=== PATIENT | female | born 1960 | race Caucasian/White ===

== ENCOUNTER 2017-02-09 06:31 | Emergency (ER) | payer OTHER ==
[~2017-02-09] VITALS: Ht 157.5 cm; Wt 89.0 kg
[~2017-02-09 06:31] MED LIST: AMOX1TAB10 PO; CALC-67 PO; DOCU-144 PO; GLIM4TAB PO; HYDR-3498 PO; OMEG100011 PO; PIOG15TA21 PO; SIMV20TA PO
[2017-02-09 06:32] VITALS: Ht 157.5 cm; Wt 89.0 kg
[2017-02-09] MEDS ORDERED: traMADol 50 MG TAB PO ONE (07:30)
[2017-02-09] MEDS ORDERED: IBUPROFEN 600 MG TAB PO ONE (07:30)
[2017-02-09] MEDS ORDERED: TRAM50TA2 PO (07:44)
[2017-02-09] MEDS ORDERED: IBUP-1542 PO (07:44)
[2017-02-09] MEDS ORDERED: DOXY100T20 PO (07:44)
--- NOTE | 2017-02-09 07:52 | ERD ---
ER Documentation Chief Complaint Date/Time DATE: 02/09/17 TIME: 07:49 Chief Complaint right foot pain/swelling since yesterday, no trauma HPI This 56-year-old female presents with pain in her right foot since yesterday. She has a history of trauma. The pain is primarily on the plantar aspect of her right foot in the area of the metatarsal phalangeal joint. Patient denies any fevers, restricted range of motion weakness. ROS All systems reviewed and are negative except as per history of present illness. Medications Home Meds Active Scripts Tramadol HCl (Tramadol HCl) 50 Mg Tablet, 50 MG PO Q4 Y for PAIN, #15 TAB Prov:SOFIA VALENTE MD 02/09/17 Ibuprofen* (Motrin*) 600 Mg Tab, 600 MG PO Q6, #15 TAB Prov:SOFIA VALENTE MD 02/09/17 Doxycycline Hyclate* (Doxycycline Hyclate*) 100 Mg Tablet.dr, 100 MG PO BID for 10 Days, TAB Prov:SOFIA VALENTE MD 02/09/17 Amox Tr/Potassium Clavulanate (Amox Tr-K Clv 875-125 Mg Tab) 1 Tab Tablet, 1 TAB PO BID for 7 Days, TAB Prov:JOANNA DUQUE [employer] 09/21/15 Docusate Sodium* (Colace*) 100 Mg Cap, 100 MG PO TID, #30 CAP Prov:JOANNA DUQUE [employer] 09/21/15 Hydrocodone Bit/Acetaminophen (Anexsia 5-325 Mg Tablet) 1 Tab Tab, 2 TAB PO Q6H Y for SEVERE PAIN LEVEL 7-10, #40 TAB Prov:JOANNA DUQUE [employer] 09/21/15 Reported Medications [place]-3 Fatty Acids/Fish Oil* (Fish Oil *) 1,000 Mg Capsule, 1000 MG PO BID, CAP 09/15/15 Glimepiride* (Glimepiride*) 4 Mg Tablet, 8 MG PO DAILY, TAB 09/15/15 Calcium Carbonate/Vitamin D3* (Os-[place] 500+D*) 1 Tab Tablet, 1 TAB PO BID, TAB 09/15/15 Simvastatin* (Zocor*) 20 Mg Tablet, 20 MG PO QHS, #30 TAB 09/15/15 Pioglitazone Hcl* (Pioglitazone Hcl*) 15 Mg Tablet, 15 MG PO DAILY, TAB 09/15/15 Allergies Allergies: Coded Allergies: No Known Allergy (Unverified , 09/15/15) PMhx/Soc Medical and Surgical Hx: pt denies Medical Hx, pt denies Surgical Hx History of Surgery: No Anesthesia Reaction: No Hx Neurological Disorder: No Hx Respiratory Disorders: No Hx Cardiac Disorders: No Hx Psychiatric Problems: No Hx Miscellaneous Medical Probl: Yes (DM, hyperlipidemia) Hx Alcohol Use: No Hx Substance Use: No Hx Tobacco Use: No Smoking Status: Never smoker Physical Exam Vitals Vital Signs Date Time Temp Pulse Resp B/P Pulse Ox O2 Delivery O2 Flow Rate FiO2 02/09/17 06:32 98.1 79 18 139/63 99 Physical Exam Const: []Alert, [id number] per Head: Atraumatic Eyes: Normal Conjunctiva ENT: Normal External Ears, Nose and Mouth. Neck: Full range of motion..~ No meningismus. Resp: Clear to auscultation bilaterally Cardio: Regular rate and rhythm, no murmurs Abd: Soft, non tender, non distended. Normal bowel sounds Skin: No petechiae or rashes Back: No midline or flank tenderness Ext: No cyanosis, or edema. There is tenderness primarily on the plantar aspect overlying the right first metatarsal phalangeal joint area. There is no pain in the joints or bony tenderness or deformities. Some slight irritation without warmth, fluctuance, discharge. Neur: Awake and alert Psych: Normal Mood and Affect Results 24 hrs Current Medications Medications (Trade) Dose Ordered Sig/Say Route PRN Reason Start Time Stop Time Status Last Admin Dose Admin Ibuprofen (Motrin) 600 mg ONCE ONCE PO 02/09/17 07:30 02/09/17 07:31 DC 02/09/17 07:18 Tramadol HCl (Ultram) 50 mg ONCE ONCE PO 02/09/17 07:30 02/09/17 07:31 DC 02/09/17 07:18 Procedures/MDM X-ray Foot 3V Interpreted by me: Bones: No fracture Joints: No dislocation Foreign body: None. Impression-normal right foot x-ray Patient presents with pain on the plantar surface of the right first metatarsophalangeal joint area. Symptoms do not suggest septic arthritis, tenosynovitis, OSTEOMYELITIS, fracture, dislocation. She may have an irritated or possibly infected callus. She may have metatarsalgia. Patient will be treated empirically with doxycycline, ibuprofen and tramadol and primary care follow-up in a 2 day wound check. Departure Diagnosis: Primary Impression: Foot pain Laterality: right Qualified Code: M79.671 - Right foot pain Condition: Stable Patient Instructions: Arthralgia Referrals: DOCTOR,NOT ON STAFF (PCP) JOSÉ MIGUEL MORENO MD Additional Instructions: X RAY NORMAL. VAMOS A TRATAR PARA DOLOR Y INFECCION. CHEQUE 2-3 MACRINA PARA MAS BELLAMY , FIEBRE, NUEVA SIMPTOMAS. O CHEQU CON ORTHOPEDICO , DOCTOR PRIMARIO SOFIA VALENTE MD Feb 09, 2017 07:52 SOFIA VALENTE MD Feb 09, 2017 07:52
--- NOTE | 2017-02-09 08:15 | RADRPT ---
PROCEDURE: XR Foot. CLINICAL INDICATION: Pain TECHNIQUE: Three views of the right foot are available for review. COMPARISON: None available FINDINGS: The osseous structures, articular spaces, and surrounding soft tissues are intact. No acute fractur e or dislocation is seen. No radiopaque foreign body is identified. Bony mineralization is normal. IMPRESSION: 1. Unremarkable right foot x-ray series. RPTAT: PP .Mg Anand MD, MD Date Time Electronically viewed and signed by .Mg Anand MD, on 02/09/2017 08:15 .R/
== END 2017-02-09 07:54 | disposition home or self-care (01) ==
LOC: FTE 06:31
DX: M79.671 Pain in right foot (principal); E11.9 Type 2 diabetes mellitus without complications; Z79.84 Long term (current) use of oral hypoglycemic drugs
CPT/HCPCS: 73630; Z7502; Z7610